=== PATIENT | male | born 1980 | race Two or more races ===

== ENCOUNTER 2019-07-27 12:33 | Inpatient (IN) | payer MEDICAID ==
[~2019-07-27] VITALS: Ht 170.2 cm; Wt 65.3 kg
[2019-07-27] MEDS ORDERED: OLAN10TA6 PO (13:10)
[2019-07-27] MEDS ORDERED: HALOPERIDOL 5 MG TABLET PO PRN (15:00)
[2019-07-27] MEDS ORDERED: LORazepam 2 MG TABLET PO PRN (15:00)
[2019-07-27 15:01] VITALS: BP 90/52
[2019-07-27 16:09] VITALS: BP 128/62
[2019-07-27] MEDS ORDERED: MAGNESIUM HYDROXIDE SUSPENSION 30 ML UDCUP PO PRN (17:15)
[2019-07-27] MEDS ORDERED: GuaiFENesin/D-METHORPHAN [SUGAR-FREE] 200-20MG/10 ML SYRUP UDCUP PO PRN (17:15)
[2019-07-27] MEDS ORDERED: ONDANSETRON HCL 4 MG TABLET PO PRN (17:15)
[2019-07-27] MEDS ORDERED: NICOTINE 14 MG/24 HOUR PATCH TD PRN (17:15)
[2019-07-27] MEDS ORDERED: ACETAMINOPHEN 325 MG TABLET PO PRN (17:15)
[2019-07-27] MEDS ORDERED: MAG HYDROX/AL HYDROX/SIMETH ES 30 ML SUSPENSION UDCUP PO PRN (17:15)
[2019-07-27] MEDS ORDERED: ALBUTEROL SULFATE HFA 90 MCG/PUFF 8 GM INHALER IH PRN (17:15)
[2019-07-27] MEDS ORDERED: DOCUSATE SODIUM 100 MG CAPSULE PO PRN (17:15)
[2019-07-27] MEDS ORDERED: CloNIDine HCL 0.1 MG TABLET PO PRN (17:15)
[2019-07-27] MEDS ORDERED: PETROLATUM,WHITE 28 GM JELLY TP PRN (17:15)
[2019-07-27] MEDS ORDERED: LOPERAMIDE HCL 2 MG CAPSULE PO PRN (17:15)
[2019-07-27] MEDS ORDERED: IBUPROFEN 400 MG TABLET PO PRN (17:15)
[2019-07-28] MEDS: ZOLPIDEM TARTRATE 10 MG TABLET PO PRN (00:26)
[2019-07-28 00:54] VITALS: BP 119/74
[2019-07-28] MEDS ORDERED: PETROLATUM,WHITE 28 GM JELLY TP PRN (07:30)
[2019-07-28] MEDS ORDERED: MAGNESIUM HYDROXIDE SUSPENSION 30 ML UDCUP PO PRN (07:30)
[2019-07-28] MEDS ORDERED: ONDANSETRON HCL 4 MG TABLET PO PRN (07:30)
[2019-07-28] MEDS ORDERED: IBUPROFEN 400 MG TABLET PO PRN (07:30)
[2019-07-28] MEDS ORDERED: LOPERAMIDE HCL 2 MG CAPSULE PO PRN (07:30)
[2019-07-28] MEDS ORDERED: GuaiFENesin/D-METHORPHAN [SUGAR-FREE] 200-20MG/10 ML SYRUP UDCUP PO PRN (07:30)
[2019-07-28] MEDS ORDERED: ACETAMINOPHEN 325 MG TABLET PO PRN (07:30)
[2019-07-28] MEDS ORDERED: MAG HYDROX/AL HYDROX/SIMETH ES 30 ML SUSPENSION UDCUP PO PRN (07:30)
[2019-07-28] MEDS ORDERED: ALBUTEROL SULFATE HFA 90 MCG/PUFF 8 GM INHALER IH PRN (07:30)
[2019-07-28] MEDS ORDERED: CloNIDine HCL 0.1 MG TABLET PO PRN (07:30)
[2019-07-28] MEDS ORDERED: DOCUSATE SODIUM 100 MG CAPSULE PO PRN (07:30)
[2019-07-28] MEDS ORDERED: NICOTINE 14 MG/24 HOUR PATCH TD PRN (07:30)
[2019-07-28 08:07] LABS: EOSINOPHILS % (AUTO) 3.1 % (1.0-6.0); HEMATOCRIT 46.3 % (41-53); HEMOGLOBIN 15.6 g/dL (13.5-17.5); LYMPHOCYTES # (AUTO) 2.6 K/uL (1.0-4.8); LYMPHOCYTES % (AUTO) 42.8 % (22.0-44.0); MEAN CORPUSCULAR HEMOGLOBIN 31.5 pg (26.0-34.0); MEAN CORPUSCULAR HGB CONC 33.7 G/dL (31.0-37.0); MEAN CORPUSCULAR VOLUME 93 fL (80-100); MONOCYTES # (AUTO) 0.6 K/uL (0.1-1.0); MONOCYTES % (AUTO) 9.1 % (2.0-9.0); NEUTROPHILS # (AUTO) 2.7 K/uL (1.8-7.7); PLATELET COUNT (AUTO) 292 K/uL (150-450); RED BLOOD CELL COUNT(AUTO) 4.96 MIL/uL (4.50-5.90); RED CELL DISTRIBUTION WIDTH 12.6 % (11.5-14.5)
[2019-07-28 08:42] LABS: ALANINE AMINOTRANSFERASE 32 U/L (12-78); ALBUMIN 4.3 g/dL (3.4-5.0); ALKALINE PHOSPHATASE 62 U/L (46-116); ANION GAP 10 mmol/L (8-16); ASPARTATE AMINOTRANSFERASE 25 U/L (15-37); BILIRUBIN,TOTAL 1.9 mg/dL (0.1-1.0); CALCIUM, TOTAL 8.8 mg/dL (8.8-10.5); CARBON DIOXIDE 26 mmol/L (22-29); CHLORIDE 104 mmol/L (98-107); CHOL/HDL RATIO 5.2 (4.2-7.3); CHOLESTEROL 223 mg/dL (131-200); CREATININE 1.16 mg/dL (0.60-1.30); GLOMERULAR FILTR. RATE CALC > 60 mL/min (>60); GLUCOSE,RANDOM 89 mg/dL (70-110); HDL CHOLESTEROL 43 mg/dL (40-60); LDL CHOL (CALC.) 165 mg/dL (0-130); POTASSIUM 3.7 mmol/L (3.5-5.1); SODIUM SERUM 140 mmol/L (136-145); THYROID STIMULATING HORMONE 1.17 uIU/mL (0.36-3.74); TOTAL PROTEIN, SERUM 7.5 g/dL (6.4-8.2); TRIGLYCERIDES 75 mg/dL (15-150); UREA NITROGEN, BLOOD 22 mg/dL (7-18)
[2019-07-28 08:48] VITALS: BP 119/76
[2019-07-28 16:10] VITALS: BP 106/73
[2019-07-28] MEDS: OLANZapine 10 MG RAPDIS TABLET PO SCH (20:05)
[2019-07-29] VITALS: BP 104/70
[2019-07-29 09:26] VITALS: BP 131/82
[2019-07-29 16:00] VITALS: BP 129/75
[2019-07-29] MEDS: OLANZapine 10 MG RAPDIS TABLET PO SCH (20:08)
[2019-07-30 06:20] VITALS: BP 128/83
[2019-07-30 09:02] VITALS: BP 115/63
[2019-07-30 16:00] VITALS: BP 112/71
[2019-07-30] MEDS: OLANZapine 10 MG RAPDIS TABLET PO SCH (20:23)
[2019-07-31 00:04] VITALS: BP 122/79
[2019-07-31 08:15] VITALS: BP 135/85
[2019-07-31 16:01] VITALS: BP 122/63
[2019-07-31] MEDS: OLANZapine 10 MG RAPDIS TABLET PO SCH (20:29)
[2019-08-01 00:54] VITALS: BP 124/76
[2019-08-01 08:22] VITALS: BP 116/74
[2019-08-01 16:00] VITALS: BP 126/75
[2019-08-01] MEDS: OLANZapine 10 MG RAPDIS TABLET PO SCH (20:32)
[2019-08-02 00:26] VITALS: BP 113/70
[2019-08-02 08:12] LABS: APPEARANCE,URINE CLEAR (CLEAR); BILIRUBIN,URINE NEGATIVE (NEGATIVE); GLUCOSE, URINE (UA) NEGATIVE (NEGATIVE); KETONES,URINE NEGATIVE (NEGATIVE); LEUKOCYTE ESTERASE ,URINE NEGATIVE (NEGATIVE); NITRATE,URINE NEGATIVE (NEGATIVE); OCCULT BLOOD,URINE NEGATIVE (NEGATIVE); PROTEIN,URINE NEGATIVE (NEGATIVE); UROBILINOGEN,URINE 0.2 mg/dL (<=1.0)
[2019-08-02 08:15] VITALS: BP 132/82
[2019-08-02 08:17] LABS: AMPHET/METH SCREEN,URINE NEGATIVE (NEGATIVE); BARBITURATE SCREEN, URINE NEGATIVE (NEGATIVE); BENZODIAZEPINES SCREEN,URINE NEGATIVE (NEGATIVE); CANNABINOID SCREEN,URINE POSITIVE (NEGATIVE); COCAINE SCREEN,URINE NEGATIVE (NEGATIVE); METHADONE SCREEN, URINE NEGATIVE (NEGATIVE); OPIATE SCREEN,URINE NEGATIVE (NEGATIVE)
[2019-08-02 08:23] LABS: PHENCYCLIDINE SCREEN,URINE NEGATIVE (NEGATIVE)
[2019-08-02 16:08] VITALS: BP 105/73
[2019-08-02] MEDS: OLANZapine 10 MG RAPDIS TABLET PO SCH (20:34)
[2019-08-03 01:23] VITALS: BP 106/81
[2019-08-03] MEDS: ZOLPIDEM TARTRATE 10 MG TABLET PO PRN (01:30)
[2019-08-03 08:15] VITALS: BP 125/84
[2019-08-03] MEDS: OMEGA-3/DHA/EPA/FISH OIL 500 MG CAPSULE PO SCH (08:35)
[2019-08-03 09:38] VITALS: BP 107/64
[2019-08-03 16:31] VITALS: BP 122/60
[2019-08-03] MEDS: OLANZapine 10 MG RAPDIS TABLET PO SCH (20:38)
[2019-08-04 01:13] VITALS: BP 119/74
[2019-08-04 08:16] VITALS: BP 104/65
[2019-08-04] MEDS: OMEGA-3/DHA/EPA/FISH OIL 500 MG CAPSULE PO SCH (08:24)
[2019-08-04 16:06] VITALS: BP 113/62
[2019-08-04] MEDS: OLANZapine 10 MG RAPDIS TABLET PO SCH (20:05)
[2019-08-05] MEDS: ZOLPIDEM TARTRATE 10 MG TABLET PO PRN (00:14)
[2019-08-05 01:30] VITALS: BP 104/62
[2019-08-05] MEDS: OMEGA-3/DHA/EPA/FISH OIL 500 MG CAPSULE PO SCH (08:24)
[2019-08-05 10:04] VITALS: BP 116/77
[2019-08-05 17:05] VITALS: BP 134/70
[2019-08-05] MEDS: OLANZapine 10 MG RAPDIS TABLET PO SCH (20:03)
[2019-08-06] VITALS: BP 100/78
[2019-08-06] MEDS: OMEGA-3/DHA/EPA/FISH OIL 500 MG CAPSULE PO SCH (08:21)
[2019-08-06 09:34] VITALS: BP 100/63
[2019-08-06 16:24] VITALS: BP 108/71
[2019-08-06] MEDS: OLANZapine 10 MG RAPDIS TABLET PO SCH (20:02)
[2019-08-07 00:14] VITALS: BP 112/75
[2019-08-07] MEDS: ZOLPIDEM TARTRATE 10 MG TABLET PO PRN (01:30)
[2019-08-07 08:09] VITALS: BP 127/73
[2019-08-07] MEDS: OMEGA-3/DHA/EPA/FISH OIL 500 MG CAPSULE PO SCH (08:15)
== END 2019-08-07 13:30 | disposition home or self-care (01) | DRG 750 ==
LOC: B2S 15:11
PROVIDERS: ADMIT Psychiatry & Neurology Child & Adolescent Psychiatry; ATTEND Psychiatry & Neurology Child & Adolescent Psychiatry
DX: F20.0 Paranoid schizophrenia (principal); R17 Unspecified jaundice; E78.5 Hyperlipidemia, unspecified; G44.209 Tension-type headache, unspecified, not intractable; Z91.5 Personal history of self-harm; Z59.0 Homelessness; F12.10 Cannabis abuse, uncomplicated; F32.9 Major depressive disorder, single episode, unspecified
CPT/HCPCS: 80307; 83036; 84443; 87081